=== PATIENT | female | born 1980 | race Caucasian/White ===

== ENCOUNTER 2017-03-19 03:43 | Emergency (ER) | payer MEDICAID ==
[~2017-03-19] VITALS: Ht 165.1 cm; Wt 78.8 kg
[~2017-03-19 03:43] MED LIST: PREN1TAB62 PO
[2017-03-19 04:06] VITALS: Ht 165.1 cm; Wt 78.8 kg
--- NOTE | 2017-03-19 04:18 | ERD ---
ER Documentation Chief Complaint Chief Complaint cramping and bleeding started at 0300 HPI 36-year-old female presents here to emergency department for complaints of vaginal bleeding pelvic pain and cramping that started at 3 AM today. Patient describes the bleeding as moderate in severity. Patient has soaked one pad. Patient complains of pelvic pain cramping pain, 4/10 scale, accompanying the vaginal bleeding. Patient did not take any medications to help with symptoms. Patient is approximately 14 weeks , 4 para 3 0. LMP November 22, 2016. ROS All systems reviewed and are negative except as per history of present illness. Medications Home Meds Active Scripts Acetaminophen* (Tylophen*) 500 Mg Capsule, 1 CAP PO Q6H Y for PAIN AND OR ELEVATED TEMP, #20 CAP Prov:JAIME RUIZ NP 03/19/17 Reported Medications Vit-Iron Fumarate-FA ( Vitamin Tablet) 1 Each Tablet, 1 TAB PO DAILY, TAB 08/02/15 Allergies Allergies: Coded Allergies: No Known Drug Allergy (Verified Allergy, Unknown, 08/02/15) PMhx/Soc History of Surgery: Yes (caesarian section) Anesthesia Reaction: No Hx Neurological Disorder: No Hx Respiratory Disorders: No Hx Cardiac Disorders: No Hx Psychiatric Problems: No Hx Miscellaneous Medical Probl: No Hx Alcohol Use: No Hx Substance Use: No Hx Tobacco Use: No Smoking Status: Never smoker FmHx Family History: No coronary disease, No diabetes, No other Physical Exam Vitals Vital Signs Date Time Temp Pulse Resp B/P Pulse Ox O2 Delivery O2 Flow Rate FiO2 03/19/17 04:06 98.7 85 16 108/68 96 Physical Exam GENERAL: The patient is well developed and appropriate for usual state of health, in no apparent distress. CHEST: Clear to auscultation bilaterally. There are no rales, wheezes or rhonchi. HEART: Regular rate and rhythm. No murmurs, clicks, rubs or gallops. No S3 or S4. ABDOMEN: Soft, nontender and nondistended. Good bowel sounds. No rebound or guarding. No gross peritonitis. No gross organomegaly or masses. No Carreno sign or McBurney point tenderness. BACK: No midline or flank tenderness. EXTREMITIES: Equal pulses bilaterally. There is no peripheral clubbing, cyanosis or edema. No focal swelling or erythema. Full range of motion. Grossly neurovascularly intact. NEURO: Alert and oriented. Cranial nerves 2-12 intact. Motor strength in all 4 extremities with 5/5 strength. Sensation grossly intact. Normal speech and gait. SKIN: There is no apparent rash or petechia. The skin is warm and dry. HEMATOLOGIC AND LYMPHATIC: There is no evidence of excessive bruising or lymphedema. No gross cervical, axillary, or inguinal lymphadenopathy. Vaginal : Blood in the vaginal vault, the cervical loss is closed. No adnexal tenderness or cervical motion tenderness noted. Result Diagram: 03/19/17 0420 Results 24 hrs Laboratory Tests Test 03/19/17 04:20 White Blood Count 7.510^3/ul Red Blood Count 3.9210^6/ul Hemoglobin 11.2g/dl Hematocrit 32.4% Mean Corpuscular Volume 82.7fl Mean Corpuscular Hemoglobin 28.6pg Mean Corpuscular Hemoglobin Concent 34.6g/dl Red Cell Distribution Width 13.0% Platelet Count 58581^3/UL Mean Platelet Volume 11.4fl Neutrophils % 68.6% Lymphocytes % 23.6% Monocytes % 5.0% Eosinophils % 1.5% Basophils % 0.9% Nucleated Red Blood Cells % 0.0/100WBC Neutrophils # 5.110^3/ul Lymphocytes # 1.810^3/ul Monocytes # 0.410^3/ul Eosinophils # 0.110^3/ul Basophils # 0.110^3/ul Nucleated Red Blood Cells # 0.010^3/ul Urine Color STRAW Urine Clarity CLEAR Urine pH 7.0 Urine Specific [place] 1.010 Urine Ketones NEGATIVEmg/dL Urine Nitrite NEGATIVEmg/dL Urine Bilirubin NEGATIVEmg/dL Urine Urobilinogen NEGATIVEmg/dL Urine Leukocyte Esterase NEGATIVELeu/ul Urine Microscopic RBC 28/HPF Urine Microscopic WBC 1/HPF Urine Hemoglobin 3+mg/dL Urine Glucose NEGATIVEmg/dL Urine Total Protein NEGATIVEmg/dl Beta HCG, Quantitative 03939.0mIU/ml PROCEDURE: US OB. CLINICAL INDICATION: Vaginal bleeding TECHNIQUE: Multiple sonographic images of the pelvis were obtained. The images were reviewed on a PACS workstation. COMPARISON: US 05/08/2015 FINDINGS: The cervix is closed with a length of . There is a single viable intrauterine gestation. Cardiac activity is present with 154 beats per minute. There is a vertex presentation. Measurements were made in order to determine age. The results are as follows: BPD = 3.0 cm HC = 11 cm AC = 9.3 cm FL = 1.7 cm. Estimated gestational age of approximately 15 weeks, 2 days. The gestational age by LMP is 16 weeks, 5 days. The estimated date of delivery is 09/08/2017. The EFW = 117.86 g +/- 17.7 g. The placenta is anterior. There is no evidence for an abruption or placenta previa. IMPRESSION: Single viable intrauterine gestation of approximately 15 weeks, 2 days. The estimated date of delivery is 09/08/2017 . Physician Dana Date Time Electronically viewed and signed by Kwesi De Leon Physician on 03/19/2017 04: 54 CS/ CC: JAIME RUIZ MANAGER MEDICAL WRITING Procedures/MDM Medical Decision Making: Patients vaginal bleeding is most likely consistent of possible threatened . Patient does not show any evidence of hypovolemic shock. Patients hemoglobin and hematocrit is stable. There is low suspicion for ectopic . GLO results show a viable in 2 days, no abruption of placenta or placenta previa, no subchorionic bleed.. BetaHCG Quantitative is appropriate for .The patient is Rh+, does not need RhoGAM this time. There is no signs of symptoms of dehydration. There is low suspicion for sepsis. Patient appears well and is hemodynamically stable. Disposition: Home. Condition: Stable Prescription: Tylenol Instructions: Patient is advised to do bed rest, avoid heavy lifting, and avoid having sex until cleared by OB doctor. Patient is advised to follow up with OB doctor or here at the ER in 48 hours for reevaluation of symptoms, repeat beta HCG quantitative and ultrasound. Patient is advised that is symptoms are worst, severe bleeding, dizziness, severe abdominal pain, fever, worst signs and symptoms to return to the emergency department immediately. Disclaimer: Inadvertent spelling and grammatical errors are likely due to EHR/ dictation software use and do not reflect on the overall quality of patient care. Also, please note that the electronic time recorded on this note does not necessarily reflect the actual time of the patient encounter. Departure Diagnosis: Primary Impression: Vaginal bleeding in patient at less than 20 weeks gestation Condition: Stable Patient Instructions: Bleeding During Early Additional Instructions: Patient is advised to do bed rest, avoid heavy lifting, and avoid having sex until cleared by OB doctor. Patient is advised to follow up with OB doctor or here at the ER in 48 hours for reevaluation of symptoms, repeat beta HCG quantitative and ultrasound. Patient is advised that is symptoms are worst, severe bleeding, dizziness, severe abdominal pain, fever, worst signs and symptoms to return to the emergency department immediately. JAIME RUIZ NP Mar 19, 2017 04:18
[2017-03-19 04:39] LABS: BASOPHIL # 0.1 10^3/ul (0.0-0.1); BASOPHILS % 0.9 % (0.0-2.0); EOSINOPHILS # 0.1 10^3/ul (0.0-0.5); EOSINOPHILS % 1.5 % (0.0-7.0); HEMATOCRIT 32.4 % (37.0-47.0); HEMOGLOBIN 11.2 g/dl (12.0-16.0); LYMPHOCYTES # 1.8 10^3/ul (0.8-2.9); LYMPHOCYTES % 23.6 % (15.0-51.0); MEAN CORPUSCULAR HEMOGLOBIN 28.6 pg (29.0-33.0); MEAN CORPUSCULAR HGB CONC 34.6 g/dl (32.0-37.0); MEAN CORPUSCULAR VOLUME 82.7 fl (82.0-101.0); MEAN PLATELET VOLUME 11.4 fl (7.4-10.4); MONOCYTE # 0.4 10^3/ul (0.3-0.9); NEUTROPHIL # 5.1 10^3/ul (1.6-7.5); NEUTROPHILS % 68.6 % (39.0-77.0); PLATELET COUNT 198 10^3/UL (140-415); RED BLOOD COUNT 3.92 10^6/ul (4.20-5.40); WHITE BLOOD COUNT 7.5 10^3/ul (4.8-10.8)
[2017-03-19 04:48] LABS: ADD UMIC YES; UR ASCORBIC ACID NEGATIVE (NEGATIVE); UR BILIRUBIN (Dip) NEGATIVE (NEGATIVE); UR BLOOD (Dip) 3+ mg/dL (NEGATIVE); UR CLARITY CLEAR (CLEAR); UR COLOR STRAW (YELLOW); UR GLUCOSE (Dip) NEGATIVE (NEGATIVE); UR KETONES (Dip) NEGATIVE (NEGATIVE); UR LEUKOCYTE ESTERASE (Dip) NEGATIVE Leu/ul (NEGATIVE); UR NITRITE (Dip) NEGATIVE (NEGATIVE); UR RBC 28 /HPF (0-5); UR TOTAL PROTEIN (Dip) NEGATIVE (NEGATIVE); UR UROBILINOGEN (Dip) NEGATIVE (NEGATIVE)
--- NOTE | 2017-03-19 04:54 | RADRPT ---
PROCEDURE: US OB. CLINICAL INDICATION: Vaginal bleeding TECHNIQUE: Multiple sonographic images of the pelvis were obtained. The images were reviewed on a PACS workstation. COMPARISON: US 05/08/2015 FINDINGS: The cervix is closed with a length of . There is a single viable intrauterine gestation. Cardiac activity is present with 154 beats per min [place]. There is a vertex presentation. Measurements were made in order to determine age. The results are as follows: BPD =3.0 cm HC =11 cm AC =9.3 cm FL =1.7 cm. Estimated gestational age of approximately 15 weeks, 2 days. The gestational age by LMP is 16 weeks , 5 days. The estimated date of delivery is 09/08/2017. The EFW = 117.86 g +/- 17.7 g. The placenta is anterior. There is no evidence for an abruption or placenta previa. IMPRESSION: Single viable intrauterine gestation of approximately 15 weeks, 2 days. The estimated date of deliv herbie is 09/08/2017 . Physician Dana Date Time Electronically viewed and signed by Physician Dana on 03/19/2017 04:54 CS/
[2017-03-19] MEDS ORDERED: ACET500C5 PO (05:39)
== END 2017-03-19 06:08 | disposition home or self-care (01) ==
LOC: FTE 03:43
DX: O20.9 Hemorrhage in early pregnancy, unspecified (principal); R10.2 Pelvic and perineal pain; Z3A.15 15 weeks gestation of pregnancy
CPT/HCPCS: 36415; 76805; 81001; 84702; 85025; 86900; 86901; Z7502

== ENCOUNTER 2017-03-21 13:54 | Inpatient (IN) | payer MEDICAID ==
[~2017-03-21] VITALS: Ht 170.2 cm; Wt 77.3 kg
[~2017-03-21 13:54] MED LIST changes: +ACET500C5 PO
--- NOTE | 2017-03-21 15:17 | RADRPT ---
PROCEDURE: US OB. CLINICAL INDICATION: Size and dates , leaking fluid TECHNIQUE: Multiple sonographic images of the pelvis and gravid uterus were obtained. The images were reviewed on a PACS workstation. COMPARISON: US 03/19/2017 FINDINGS: There is a single viable intrauterine gestation. Cardiac activity is present with 179 beats per min marina. The placenta is anterior. There is no evidence for an abruption . There is critical oligohydramnios with no amniotic fluid noted. Measurements were made in order to determine age. The results are as follows: BPD =2.9 cm HC =10.7 cm AC =8.7 cm FL =1.7 cm Estimated gestational age of approximately 15 weeks and 1 day based on ultrasound measurements. Clinical age: 15 weeks and 4 days. The estimated date of delivery is 09/11/17, based on ultrasound measurements. The EFW = 111 g, 10.1%, based on LMP age. RPTAT: AA IMPRESSION: Single viable intrauterine gestation of approximately 15 weeks and 1 day based on ultrasound measur ements. Critical oligohydramnios with no significant amniotic fluid noted. A call report was made and the findings discussed with Essence Delacruz at 03/21/2017 3:16 :44 PM. .Chris Cormier MD, MD Date Time Electronically viewed and signed by .Chris Cormier MD, on 03/21/2017 15:17 .S/
[2017-03-21 15:21] LABS: ADD UMIC NO; UR ASCORBIC ACID NEGATIVE (NEGATIVE); UR BILIRUBIN (Dip) NEGATIVE (NEGATIVE); UR BLOOD (Dip) NEGATIVE (NEGATIVE); UR CLARITY CLEAR (CLEAR); UR COLOR COLORLESS (YELLOW); UR GLUCOSE (Dip) NEGATIVE (NEGATIVE); UR KETONES (Dip) NEGATIVE (NEGATIVE); UR LEUKOCYTE ESTERASE (Dip) NEGATIVE Leu/ul (NEGATIVE); UR NITRITE (Dip) NEGATIVE (NEGATIVE); UR SPECIFIC GRAVITY (Dip) 1.005 (1.003-1.030); UR TOTAL PROTEIN (Dip) NEGATIVE (NEGATIVE); UR UROBILINOGEN (Dip) NEGATIVE (NEGATIVE)
--- NOTE | 2017-03-21 15:48 | ERD ---
ER Documentation Chief Complaint Chief Complaint Pt states that she believes she had amniotic fluid leaked, 15 weeks pregnan HPI 36-year-old female, , currently at 15 weeks of returns to the emergency department after being seen here 48 hours ago for vaginal bleeding. The patient is complaining of abundant vaginal leakage of clear fluid that started approximately 2 hours prior to arrival, associated with mild intermittent cramping pain. No vaginal bleeding today. Denies fevers, chills, no abdominal pain. No history of trauma. The patient has history of C-Sections x3 and according to the patient she got this time with the IUD in place. She goes to care [facility]. ROS SYSTEMIC symptoms: no fever, chills, no night sweats, no weight loss EYE symptoms: No blurred vision, no eye discharge OTOLARYNGEAL symptoms: No hearing loss. No ear pain, no sore throat CARDIOVASCULAR symptoms: No chest pain or discomfort, no palpitations. PULMONARY symptoms: No dyspnea, no cough, no wheezing. GASTROINTESTINAL symptoms: No abdominal pain, no nausea, no vomiting, no diarrhea MUSCULOSKELETAL symptoms: No arthralgias, no muscle aches. NEUROLOGY symptoms: No confusion, no syncope, no numbness or tingling. SKIN: No rashes Medications Home Meds Active Scripts Acetaminophen* (Tylophen*) 500 Mg Capsule, 1 CAP PO Q6H Y for PAIN AND OR ELEVATED TEMP, #20 CAP Prov:JAIME RUIZ NP 03/19/17 Reported Medications Vit-Iron Fumarate-FA ( Vitamin Tablet) 1 Each Tablet, 1 TAB PO DAILY, TAB 08/02/15 Allergies Allergies: Coded Allergies: No Known Drug Allergy (Verified Allergy, Unknown, 08/02/15) PMhx/Soc History of Surgery: No Anesthesia Reaction: No Hx Neurological Disorder: No Hx Respiratory Disorders: No Hx Cardiac Disorders: No Hx Psychiatric Problems: No Hx Miscellaneous Medical Probl: No Hx Alcohol Use: No Hx Substance Use: No Hx Tobacco Use: No Smoking Status: Never smoker Physical Exam Vitals Vital Signs Date Time Temp Pulse Resp B/P Pulse Ox O2 Delivery O2 Flow Rate FiO2 03/21/17 14:11 99.6 78 20 119/68 100 Physical Exam Patient is in mild distress, vital signs show temperature 99.6, otherwise normal. Alert and fully oriented. EYES: PERRLA, EOMI, Sclera and conjunctiva appear normal. EARS: Canals clear, tympanic membranes WNL THROAT: Normal oropharynx. NECK: Supple, No lymphadenopathy. Full ROM without pain or tenderness. HEART: RRR, no rubs, murmurs, clicks or gallops. LUNGS: Clear to auscultation. ABDOMEN: Soft, non-tender without masses or hepatosplenomegaly. G.U: Normal external genitalia, speculum exam showed pooling. Bimanual exam: Soft cervix closed OS. No vaginal bleeding EXTREMITIES: No edema bilaterally. BACK: Full ROM, no deformity, normal back exam NEURO: Cranial nerves grossly intact, no motor or sensory deficit Result Diagram: 03/21/17 1540 Results 24 hrs Laboratory Tests Test 03/21/17 14:47 03/21/17 15:40 Urine Color COLORLESS Urine Clarity CLEAR Urine pH 7.0 Urine Specific [place] 1.005 Urine Ketones NEGATIVEmg/dL Urine Nitrite NEGATIVEmg/dL Urine Bilirubin NEGATIVEmg/dL Urine Urobilinogen NEGATIVEmg/dL Urine Leukocyte Esterase NEGATIVELeu/ul Urine Hemoglobin NEGATIVEmg/dL Urine Glucose NEGATIVEmg/dL Urine Total Protein NEGATIVEmg/dl White Blood Count 8.910^3/ul Red Blood Count 3.9210^6/ul Hemoglobin 11.2g/dl Hematocrit 33.0% Mean Corpuscular Volume 84.2fl Mean Corpuscular Hemoglobin 28.6pg Mean Corpuscular Hemoglobin Concent 33.9g/dl Red Cell Distribution Width 13.2% Platelet Count 71916^3/UL Mean Platelet Volume 11.8fl Neutrophils % 71.6% Lymphocytes % 21.6% Monocytes % 4.3% Eosinophils % 1.5% Basophils % 0.7% Nucleated Red Blood Cells % 0.0/100WBC Neutrophils # 6.410^3/ul Lymphocytes # 1.910^3/ul Monocytes # 0.410^3/ul Eosinophils # 0.110^3/ul Basophils # 0.110^3/ul Nucleated Red Blood Cells # 0.010^3/ul [place] [id number] Radiology Main Line: [phone] DIAGNOSTIC IMAGING REPORT Patient: LUIS ALBERTO GARCIA : 1980 Age: 36 Sex: F MR #: [id number] DOS: 03/21/17 1442 Ordering MD: ESSENCE CARLIN MD Location: [facility] Room/Bed: PROCEDURE: US OB. CLINICAL INDICATION: Size and dates , leaking fluid TECHNIQUE: Multiple sonographic images of the pelvis and gravid uterus were obtained. The images were reviewed on a PACS workstation. COMPARISON: US 03/19/2017 FINDINGS: There is a single viable intrauterine gestation. Cardiac activity is present with 179 beats per minute. The placenta is anterior. There is no evidence for an abruption . There is critical oligohydramnios with no amniotic fluid noted. Measurements were made in order to determine age. The results are as follows: BPD = 2.9 cm HC = 10.7 cm AC = 8.7 cm FL = 1.7 cm Estimated gestational age of approximately 15 weeks and 1 day based on ultrasound measurements. Clinical age: 15 weeks and 4 days. The estimated date of delivery is 09/11/17, based on ultrasound measurements. The EFW = 111 g, 10.1%, based on LMP age. RPTAT: AA IMPRESSION: Single viable intrauterine gestation of approximately 15 weeks and 1 day based on ultrasound measurements. Critical oligohydramnios with no significant amniotic fluid noted. A call report was made and the findings discussed with Essence Delacruz at 03/21/2017 3:16:44 PM. .Chris Cormier MD, MD Date Time Electronically viewed and signed by .Chris Cormier MD, on 03/21/2017 15: 17 .S/ CC: ESSENCE CARLIN MD Procedures/MDM 36-year-old female at 15 weeks and 4 days presents complaining of vaginal leakage of clear liquid since this morning. The patient has history of C-sections. Vital signs showed temperature 99, otherwise unremarkable, Physical exam in normal limits. Differential diagnosis include but not limited to: Vaginitis, UTI, threatening , premature rupture membranes. Low suspicion for chorioamnionitis at this time. Pertinent Data: Labs: CBC: normal, BMP: normal kidney function, normal electrolytes. UA: normal OB US: Single viable intrauterine gestation of approximately 15 weeks and 1 day based on ultrasound measurements. Critical oligohydramnios with no significant amniotic fluid noted. Physical examination and clinical presentation most likely consistent with premature rupture of membranes. Case discussed with Dr. Boyd, laborist e business consultant and Dr. Rivera who is requesting the patient to be admitted under panel group. During the ED course the patient remained hemodynamically stable and asymptomatic. Results and clinical impression discussed with patient who agrees with management. The patient is stable to be transferred to L&D. The patient was instructed regarding the outcomes and the potential complications like severe bleeding and . Disclaimer: Inadvertent spelling and grammatical errors are likely due to EHR/ dictation software use and do not reflect on the overall quality of patient care. Also, please note that the electronic time recorded on this note does not necessarily reflect the actual time of the patient encounter. Departure Diagnosis: Primary Impression: premature rupture of membranes Condition: ESSENCE Brasher MD Mar 21, 2017 15:48 Side effects of prescribed NSAID medication (GI distress, edema, bleeding, HTN) were reviewed. The patient was instructed to follow up with the primary care provider in the next 48h. If symptoms persist, worsen or new symptoms develop, then patient should return to the ED immediately. Instructions explained and given to patient in [Vincentian] with acknowledgment and demonstrated understanding. Disclaimer: Inadvertent spelling and grammatical errors are likely due to EHR/ dictation software use and do not reflect on the overall quality of patient care. Also, please note that the electronic time recorded on this note does not necessarily reflect the actual time of the patient encounter. Departure Diagnosis: Primary Impression: premature rupture of membranes Condition: ESSENCE Brasher MD Mar 21, 2017 15:48 ESSENCE CARLIN MD Mar 21, 2017 15:48
[2017-03-21 15:55] LABS: BASOPHIL # 0.1 10^3/ul (0.0-0.1); BASOPHILS % 0.7 % (0.0-2.0); EOSINOPHILS # 0.1 10^3/ul (0.0-0.5); EOSINOPHILS % 1.5 % (0.0-7.0); HEMOGLOBIN 11.2 g/dl (12.0-16.0); LYMPHOCYTES # 1.9 10^3/ul (0.8-2.9); LYMPHOCYTES % 21.6 % (15.0-51.0); MEAN CORPUSCULAR HEMOGLOBIN 28.6 pg (29.0-33.0); MEAN CORPUSCULAR HGB CONC 33.9 g/dl (32.0-37.0); MEAN CORPUSCULAR VOLUME 84.2 fl (82.0-101.0); MEAN PLATELET VOLUME 11.8 fl (7.4-10.4); MONOCYTE # 0.4 10^3/ul (0.3-0.9); MONOCYTES % 4.3 % (0.0-11.0); NEUTROPHIL # 6.4 10^3/ul (1.6-7.5); NEUTROPHILS % 71.6 % (39.0-77.0); PLATELET COUNT 200 10^3/UL (140-415); RED BLOOD COUNT 3.92 10^6/ul (4.20-5.40); RED CELL DISTRIBUTION WIDTH 13.2 % (11.5-14.5); WHITE BLOOD COUNT 8.9 10^3/ul (4.8-10.8)
[2017-03-21] MEDS ORDERED: SOD CHLORIDE 0.9% 1,000 ML IV SCH (19:18)
[2017-03-21] MEDS ORDERED: ONDANSETRON 4 MG INJ IV PRN ×2 (19:30→21:00)
[2017-03-21] MEDS ORDERED: ACETAMINOPHEN 325 MG TAB PO PRN (19:30)
--- NOTE | 2017-03-21 20:39 | HP ---
Date/Time of Note Date/Time of Note DATE: 03/21/17 TIME: 20:35 Assessment/Plan VTE Prophylaxis VTE Prophylaxis Intervention: SCD's Assessment/Plan Assessment/Plan 36 y/o at 15w 1d with pprom -discussed poor prognosis for patient. Recommend termination, patient agrees. Discussed induction vs. D&E. Questions answered. -admit as inpatient -primary OB to manage patient. HPI/ROS Admit Date/Time Admit Date/Time Hx of Present Illness 36 y/o at 15w 1d by US today who presents with leakage of fluid. Leaking started this morning and continued throughout the day. Reports vaginal bleeding 2 days ago that resolved. Has associated cramping, 5/10 pain. h/o CS x3, last one in July 2015. ROS Per HPI. Other systems negative. PMH/Family/Social Past Medical History Medical History: no pertinent history Past Surgical History CS x3, appendectomy Family History Significant Family History: no pertinent family hx Social History Alcohol Use: none Smoking Status: Never smoker Drug Use: none Exam/Review of Systems Vital Signs Vitals Vital Signs Date Time Temp Pulse Resp B/P Pulse Ox O2 Delivery O2 Flow Rate FiO2 03/21/17 17:38 98.3 69 11 97/54 100 Room Air Exam Exam Gen: NAD HEENT: NCAT CV: RRR Pulm: CTAB Abd: soft, NT Back: no CVAT Ext: NT SVE: cervix closed Labs Result Diagram: 03/21/17 1540 Medications Medications Current Medications Sodium Chloride (NS) 1,000 ml @ 80 mls/hr [id number] IV ; Start 03/21/17 at 19:18 ; Stop 03/22/17 at 07:47 Procedures Procedures OB US with fetus 15w 1d with fca, no fluid RISHI VASQUES Mar 21, 2017 20:39
[2017-03-21] MEDS ORDERED: NACL 0.9% 3 ML SYG IV SCH (21:00)
[2017-03-21] MEDS ORDERED: morphine 2 MG INJ IV PRN (21:00)
[2017-03-21 21:09] VITALS: PULSE 73; TEMP 98.6
[2017-03-21 22:07] VITALS: BP 96/53; RESP 18
[2017-03-21 22:13] VITALS: Ht 170.2 cm; Wt 77.3 kg
[2017-03-21] MEDS: SOD CHLORIDE 0.9% 1,000 ML IV SCH (22:24)
[2017-03-22 03:07] VITALS: BP 100/58; RESP 16
[2017-03-22] MEDS: SOD CHLORIDE 0.9% 1,000 ML IV SCH ×2 (06:44→12:42)
[2017-03-22 08:00] VITALS: BP 107/55; RESP 17
[2017-03-22 14:00] VITALS: BP 96/55; RESP 18
[2017-03-22] MEDS ORDERED: CEFAZOLIN 2 GM/50 ML (PMX) 50 ML IVPB ONE (19:30)
--- NOTE | 2017-03-22 20:17 | DS ---
Date/Time of Note Date/Time of Note DATE: 03/22/17 TIME: 20:07 Obstetrical Discharge Record Final Diagnosis Final Diagnosis: not delivered Other Final Diagnosis March 22, 2017 Discharge summary This patient is 36 years old 4 para 3 who had her previous deliveries by section. She is 15 weeks and 4 days was admitted in the hospital last night due to leakage of amniotic fluid and rupture membrane. Her leakage of fluid almost disappeared . She did not have any fever and on Doppler heart tone is normal. These findings was discussed with this patient and she insists on continuing the for this season we gave her antibiotic Ancef 2 g piggyback and will give prescription for oral antibiotic . She will be discharged home with precautions to rest , avoid intercourse and to be followed by her pickling operator [facility] . On examination today she is a well-developed well-nourished lady She is afebrile abdomen is soft. No tenderness. Bowel sounds are active heart tone is normal at 150 bpm Uterus is not tender. On an sterile pelvic exam: vulva vagina were normal, no evidence of leakage of amniotic fluid at this time , no bleeding, cervix was closed. Vaginal Delivery Other Delivery information Current Medications Medications (Trade) Dose Ordered Sig/Lenny Route PRN Reason Start Time Stop Time Status Last Admin Dose Admin Sodium Chloride (NS) 1,000 ml @ 80 mls/hr [id number] IV 03/21/17 19:18 03/22/17 07:47 DC Ondansetron HCl (Zofran Inj) 4 mg BRIDGE ORDER PRN IV NAUSEA AND/OR VOMITING 03/21/17 19:30 03/22/17 19:29 DC Acetaminophen 650 mg 650 mg ER BRIDGE PRN PO MILD PAIN/FEVER 03/21/17 19:30 03/22/17 19:29 DC Sodium Chloride (NS) 1,000 ml @ 125 mls/hr Q8H IV 03/21/17 20:42 03/22/17 06:44 IV Flush (NS 3 ml) 3 ml PER PROTOCOL IV 03/21/17 21:00 Ondansetron HCl (Zofran Inj) 4 mg Q6H PRN IV NAUSEA AND/OR VOMITING 03/21/17 21:00 Morphine Sulfate (morphine) 2 mg Q4H PRN IV SEVERE PAIN LEVEL 7-10 03/21/17 21:00 Influenza Virus Vaccine 0.5 ml 0.5 ml ONCE ONCE IM* 03/23/17 09:00 03/23/17 09:01 Cefazolin Sodium/ Dextrose (Ancef 2 Gm/50 ml (Pmx)) 50 ml @ 100 mls/hr ONCE ONCE IVPB 03/22/17 19:30 03/22/17 19:59 DC She was given Ancef IV piggyback and will give her Keflex 500 mg to be taken every 6 hours at home for at least another week Section Primary Indication This patient is planed to be discharged due to the fact that she insisted on continuing this ,despite possible continuation of leakage of amniotic fluid . I explained to her and the family the possibility of severe intrauterine infection , demise and possible life threatening intrauterine infection any other complications. She should avoid intercourse should be seen by her pickling operator soon and frequently . To return to triage or to emergency room in case of fever, chills ,vaginal bleeding, lower abdominal pain etc. Complications Augmentation: No Induction: No Rupture of Membranes: Yes Condition on Discharge Physical Assessment Voiding: Yes Bowel Movement: Yes Calf Tenderness: No Patient Condition: Stable FLORECITA RAMOS MD Mar 22, 2017 20:17
[2017-03-22] MEDS ORDERED: CEPH500C PO ×5 (20:48→20:55)
[2017-03-23] MEDS ORDERED: INFLUENZA VIRUS VACCINE 0.5 ML (DISPENSING) IM* ONE (09:00)
== END 2017-03-22 20:25 | disposition home or self-care (01) | DRG 780 ==
LOC: FTE 13:54 → PP2 20:46
PROVIDERS: ADMIT Obstetrics & Gynecology; ATTEND Obstetrics & Gynecology
DX: O47.02 False labor before 37 completed weeks of gestation, second trimester (principal); Z3A.15 15 weeks gestation of pregnancy
CPT/HCPCS: 76805; 81003; 84702; 85025; J0690; J7030

== ENCOUNTER 2018-05-12 03:36 | Emergency (ER) | payer MEDICAID ==
[~2018-05-12] VITALS: Ht 167.6 cm; Wt 77.8 kg
[~2018-05-12 03:36] MED LIST changes: -ACET500C5 PO; +CEPH500C PO; -PREN1TAB62 PO
[2018-05-12 03:42] VITALS: BP 134/78; PULSE 90; RESP 18; Ht 167.6 cm; Wt 77.8 kg
[2018-05-12] MEDS ORDERED: KETOROLAC 60 MG INJ IM STA (04:39)
[2018-05-12] MEDS ORDERED: IBUP-1542 PO (05:02)
--- NOTE | 2018-05-12 05:06 | ERD ---
ER Documentation Chief Complaint Chief Complaint HEADACHE X 5 HRS HPI 38-year-old female patient with no significant past medical history presents to ED complaining of a headache that started 5 hours ago around 11 PM. Patient reports that it was a gradual onset, feels like it is pressure-like. Patient reports that loud noises make her headache worse. Denies any photophobia. States that it is in the posterior head. Denies any head or neck injuries. Denies any fever, chills, nausea, vomiting, diarrhea, neck stiffness. Denies any chest pain, shortness of breath, abdominal pain. ROS All systems reviewed and are negative except as per history of present illness. Medications Home Meds Active Scripts Ibuprofen* (Motrin*) 600 Mg Tab, 600 MG PO Q6, #30 TAB Prov:ESTELLE BIRCH PA-C 05/12/18 Reported Medications Cephalexin* (Cephalexin*) 500 Mg Capsule, 500 MG PO Q6, #28 CAP 03/22/17 Allergies Allergies: Coded Allergies: No Known Drug Allergy (Verified Allergy, Unknown, 03/21/17) PMhx/Soc Medical and Surgical Hx: pt denies Medical Hx, pt denies Surgical Hx History of Surgery: Yes (C section x3) Anesthesia Reaction: No Hx Neurological Disorder: No Hx Respiratory Disorders: No Hx Cardiac Disorders: No Hx Psychiatric Problems: No Hx Miscellaneous Medical Probl: No Hx Alcohol Use: No Hx Substance Use: No Hx Tobacco Use: No Smoking Status: Never smoker FmHx Family History: No diabetes, No coronary disease Physical Exam Vitals Vital Signs Date Temp Pulse Resp B/P (MAP) Pulse Ox O2 O2 Flow FiO2 Time Delivery Rate 05/12/18 97.0 90 18 134/78 100 03:42 (96) Physical Exam Const: [id number], well-nourished. In no acute distress. Head: Atraumatic, normocephalic Eyes: Normal Conjunctiva without injection. No purulent discharge. PERRLA. EOMI ENT: Normal external ear. Ear canal without erythema. Tympanic membrane pearly monroy without effusion or bulging. Nasal canal clear with normal turbinates. Moist oropharynx without tonsillar exudates. Non-erythematous pharynx. Uvula midline. No drooling. No trismus. Neck: No cervical midline tenderness. Full range of motion. No meningismus. No cervical lymphadenopathy. No JVD. Resp: Clear to auscultation bilaterally. No wheezing, rhonchi, rales, or crackles. No accessory muscle use. No retractions. Cardio: Regular rate and rhythm. No murmurs, rubs or gallops. Abd: Soft, non tender, non distended. Normal bowel sounds. No palpable masses. No rebound tenderness. No guarding. Negative McBurney's Point. Negative Carreno's Sign. Skin: Normal skin turgor. No petechiae or rashes Back: No midline tenderness. No CVA tenderness. Ext: No cyanosis, or edema. Distal pulses intact bilaterally. Neur: Awake and alert. Normal gait. Normal coordination. Cranial Nerves II- VII intact. Normal finger to nose. Muscle strength 5/5. Sensation intact. Psych: Normal Mood and Affect Results 24 hrs Laboratory Tests Test 05/12/18 04:52 POC Beta HCG, Qualitative NEGATIVE Current Medications Medications Dose Sig/Lenny Start Time Status Last (Trade) Ordered Route PRN Stop Time Admin Dose Reason Admin Ketorolac 60 mg ONCE STAT 05/12/18 DC 05/12/18 Tromethamine IM 04:39 05:00 (Toradol) 05/12/18 04:40 Procedures/MDM 38-year-old female patient with no significant past medical history presents to ED complaining of a headache that started 5 hours prior to arrival. Patient is afebrile and nontoxic-appearing. Patient was given Toradol 60 mg IM with improvement of her pain. Urine negative. Low suspicion for intracranial bleed, subarachnoid hemorrhage, meningitis, TIA, stroke, subdural hematoma, carotid dissection, acute glaucoma, seizures, skull fracture, epidural hematoma, or other emergent conditions. Diagnosis: Headache Discharge medications: Ibuprofen Follow up with primary care physician in 1-2 days for a referral to see a neurologist if symptoms do not improve. Instructed patient to return to the ED sooner for any worsening symptoms. Patient's questions were answered. Patient is hemodynamically stable. Patient understood and agreed with discharge plan. Patient discharged stable. Disclaimer: Inadvertent spelling and grammatical errors are likely due to EHR/dictation software use and do not reflect on the overall quality of patient care. Also, please note that the electronic time recorded on this note does not necessarily reflect the actual time of the patient encounter. Departure Diagnosis: Primary Impression: Headache Headache type: unspecified Headache chronicity pattern: unspecified pattern Intractability: not intractable Qualified Codes: R51 - Headache Condition: Stable Patient Instructions: Headache, Unspecified Referrals: [facility] YOU HAVE RECEIVED A MEDICAL SCREENING EXAM AND THE RESULTS INDICATE THAT YOU DO NOT HAVE A CONDITION THAT REQUIRES URGENT TREATMENT IN THE EMERGENCY DEPARTMENT. FURTHER EVALUATION AND TREATMENT OF YOUR CONDITION CAN WAIT UNTIL YOU ARE SEEN IN YOUR DOCTORS OFFICE WITHIN THE NEXT 1-2 DAYS. IT IS YOUR RESPONSIBILITY TO MAKE AN APPOINTMENT FOR FOLOW-UP CARE. IF YOU HAVE A PRIMARY DOCTOR --you should call your primary doctor and schedule an appointment IF YOU DO NOT HAVE A PRIMARY DOCTOR YOU CAN CALL OUR PHYSICIAN REFERRAL HOTLINE AT IF YOU CAN NOT AFFORD TO SEE A PHYSICIAN YOU CAN CHOSE FROM THE FOLLOWING [facility] [address] [facility] [address] [facility] [place] [address] [facility] [address] [facility] [address] [facility]. [facility] [address] [facility]. [facility] YOU HAVE RECEIVED A MEDICAL SCREENING EXAM AND THE RESULTS INDICATE THAT YOU DO NOT HAVE A CONDITION THAT REQUIRES URGENT TREATMENT IN THE EMERGENCY DEPARTMENT. FURTHER EVALUATION AND TREATMENT OF YOUR CONDITION CAN WAIT UNTIL YOU ARE SEEN IN YOUR DOCTORS OFFICE WITHIN THE NEXT 1-2 DAYS. IT IS YOUR RESPONSIBILITY TO MAKE AN APPOINTMENT FOR FOLOW-UP CARE. IF YOU HAVE A PRIMARY DOCTOR --you should call your primary doctor and schedule and appointment IF YOU DO NOT HAVE A PRIMARY DOCTOR YOU CAN CALL OUR PHYSICIAN REFERRAL HOTLINE AT . IF YOU CAN NOT AFFORD TO SEE A PHYSICIAN YOU CAN CHOSE FROM THE FOLLOWING [facility] INSTITUTIONS[facility] [address] [place] [address] [facility] [address] [place] [address] [facility] [address] [place] [address] [facility]CIAL[facility] Additional Instructions: Call your primary care doctor TOMORROW for an appointment during the next 2-3 days for a referral to see a neurologist if symptoms do not improve.See the doctor sooner or return here if your condition worsens before your appointment time. ESTELLE BIRCH PA-C May 12, 2018 05:06
== END 2018-05-12 05:18 | disposition home or self-care (01) ==
LOC: FTE 03:36
DX: R51 Headache (principal)
CPT/HCPCS: 81025; 96372; J1885; Z7502